=== PATIENT | female | born 1940 | race Caucasian/White ===

== ENCOUNTER 2019-06-08 11:37 | Inpatient (IN) | payer MEDICARE ==
[~2019-06-08] VITALS: Ht 157.5 cm; Wt 96.3 kg
[~2019-06-08 11:37] MED LIST: AMLO5TAB4 PO; ASPI-496 PO; ATEN25TA PO; LEVO0.5P PO; LOVA20TA2 PO; METF500T17 PO; OMEP20CA9 PO; SPIR25TA5 PO
[2019-06-08 12:13] VITALS: BP 101/64
[2019-06-08] MEDS: LEVOTHYROXINE 75 MCG TABLET PO SCH (12:32)
[2019-06-08] MEDS ORDERED: LISINOPRIL 20 MG TABLET PO SCH (12:33)
[2019-06-08] MEDS ORDERED: METO100T7 PO (13:09)
[2019-06-08] MEDS ORDERED: AMLO10TA8 PO (13:10)
[2019-06-08] MEDS ORDERED: HYDR-3245 PO (13:10)
[2019-06-08] MEDS ORDERED: LEVO75TA5 PO (13:10)
[2019-06-08] MEDS ORDERED: ALPR0.254 PO (13:10)
[2019-06-08] MEDS ORDERED: DOCU-131 PO (13:10)
[2019-06-08] MEDS ORDERED: LISI1TAB20 PO (13:10)
[2019-06-08] MEDS ORDERED: RANI150T4 PO (13:10)
[2019-06-08 13:13] LABS: BASOPHILS # (AUTO) 0.06 x10^3/uL (0-0.1); BASOPHILS % (AUTO) 1 % (0-1); EOSINOPHILS # (AUTO) 0.11 x10^3/uL (0-0.4); EOSINOPHILS % (AUTO) 1 % (1-7); LYMPHOCYTES # (AUTO) 2.56 x10^3/uL (1-3.4); LYMPHOCYTES % (AUTO) 27 % (22-44); MD NO; MEAN CORPUSCULAR HEMOGLOBIN 29.5 pg (27.0-34.8); MEAN CORPUSCULAR HGB CONC 33.3 g/dL (32.4-35.8); MEAN CORPUSCULAR VOLUME 88.5 fL (80-100); MEAN PLATELET VOLUME 7.7 fL (7.4-10.4); MONOCYTES # (AUTO) 0.62 x10^3/uL (0.2-0.8); MONOCYTES % (AUTO) 7 % (2-9); NEUTROPHILS % (AUTO) 65 % (42-75); PLATELET COUNT 360 x10^3/uL (130-400); RED BLOOD COUNT 4.25 x10^6/uL (3.82-5.3); RED CELL DISTRIBUTION WIDTH 13.6 % (9.6-15.2)
[2019-06-08 13:19] LABS: ALBUMIN 3.6 g/dL (3.4-5.0); ANION GAP 8 mmol/L (5-15); CALCIUM 8.4 mg/dL (8.5-10.1); CHLORIDE 105 mmol/L (98-107)
[2019-06-08 13:24] LABS: ALANINE AMINOTRANSFERASE 18 U/L (12-78); ALKALINE PHOSPHATASE 49 U/L (45-117); BILIRUBIN,TOTAL 0.2 mg/dL (0.2-1.0); CREATININE 1.17 mg/dL (0.55-1.02); T4 (THYROXINE) 11.1 mcg/dL (4.8-13.9); TROPONIN I < 0.015 ng/mL (0.000-0.045)
[2019-06-08] MEDS ORDERED: HYDROcodone/APAP 10/325 MG TABLET PO PRN (15:00)
[2019-06-08] MEDS ORDERED: ACETAMINOPHEN 325 MG TABLET PO PRN (15:00)
[2019-06-08] MEDS ORDERED: ONDANSETRON ODT 4 MG PO PRN (15:00)
[2019-06-08 16:37] VITALS: BP 102/67
[2019-06-08] MEDS ORDERED: DIGOXIN 0.25 MG/ML, 2ML IVPush ONE (17:30)
[2019-06-08 18:34] LABS: TROPONIN I < 0.015 ng/mL (0.000-0.045)
[2019-06-08] MEDS ORDERED: GADOTERATE 10 MMOL/20 ML SYR ONE (18:53)
[2019-06-08] MEDS: APIXABAN 5 MG TABLET PO SCH (20:02)
[2019-06-08] MEDS: METOPROLOL TARTRATE 100 MG TABLET PO SCH (20:02)
[2019-06-08] MEDS: metFORMIN 500 MG TABLET PO SCH (20:02)
[2019-06-08] MEDS: DOCUSATE 100 MG CAPSULE PO SCH (20:02)
[2019-06-08] MEDS: FAMOTIDINE 20 MG TABLET PO SCH (20:02)
[2019-06-08 21:01] VITALS: BP 99/62
[2019-06-09 00:56] VITALS: BP 122/77
[2019-06-09 05:59] LABS: ALANINE AMINOTRANSFERASE 14 U/L (12-78); ALBUMIN 3.4 g/dL (3.4-5.0); ANION GAP 5 mmol/L (5-15); CALCIUM 8.5 mg/dL (8.5-10.1); CHLORIDE 105 mmol/L (98-107)
[2019-06-09 06:01] LABS: ALKALINE PHOSPHATASE 43 U/L (45-117); BILIRUBIN,TOTAL 0.4 mg/dL (0.2-1.0); TOTAL PROTEIN 6.6 g/dL (6.4-8.2)
[2019-06-09] MEDS: LEVOTHYROXINE 75 MCG TABLET PO SCH (06:24)
[2019-06-09 07:49] VITALS: BP 140/82
[2019-06-09] MEDS ORDERED: REGADENOSON 0.4 MG/5 ML SYRINGE ONE (08:42)
[2019-06-09] MEDS: HYDROCHLOROTHIAZIDE 25 MG TABLET PO SCH (10:25)
[2019-06-09] MEDS: metFORMIN 500 MG TABLET PO SCH ×2 (10:25→21:02)
[2019-06-09] MEDS: FAMOTIDINE 20 MG TABLET PO SCH ×2 (10:25→21:19)
[2019-06-09] MEDS: OMEPRAZOLE 20 MG CAPSULE.DR PO SCH (10:25)
[2019-06-09] MEDS: DOCUSATE 100 MG CAPSULE PO SCH ×2 (10:25→21:02)
[2019-06-09] MEDS: APIXABAN 5 MG TABLET PO SCH ×2 (10:25→21:02)
[2019-06-09] MEDS: METOPROLOL TARTRATE 100 MG TABLET PO SCH ×2 (10:26→21:02)
[2019-06-09] MEDS: LISINOPRIL 20 MG TABLET PO SCH (10:26)
[2019-06-09] MEDS: LISINOPRIL 10 MG TABLET PO SCH (10:26)
[2019-06-09 13:23] VITALS: BP 125/78
[2019-06-09 19:46] VITALS: BP 107/71
[2019-06-09] MEDS ORDERED: FAMOTIDINE 20 MG TABLET ONE (21:17)
[2019-06-10 01:29] VITALS: BP_SYST 103; BP_SYST 113; BP_DIAS 68
[2019-06-10] MEDS: LEVOTHYROXINE 75 MCG TABLET PO SCH (06:05)
[2019-06-10 07:10] VITALS: BP 129/83
[2019-06-10] MEDS: HYDROCHLOROTHIAZIDE 25 MG TABLET PO SCH (10:03)
[2019-06-10] MEDS: METOPROLOL TARTRATE 100 MG TABLET PO SCH ×3 (10:03→20:33)
[2019-06-10] MEDS: OMEPRAZOLE 20 MG CAPSULE.DR PO SCH ×2 (10:03→20:32)
[2019-06-10] MEDS: FAMOTIDINE 20 MG TABLET PO SCH (10:03)
[2019-06-10] MEDS: DOCUSATE 100 MG CAPSULE PO SCH ×2 (10:03→20:31)
[2019-06-10] MEDS: LISINOPRIL 10 MG TABLET PO SCH (10:04)
[2019-06-10] MEDS: LISINOPRIL 20 MG TABLET PO SCH (10:04)
[2019-06-10] MEDS ORDERED: SODIUM CHLORIDE 0.9% 1,000 ML IV SCH (11:00)
[2019-06-10 12:15] VITALS: BP 134/74
[2019-06-10 19:29] VITALS: BP 98/62
[2019-06-11 01:37] VITALS: BP 106/68
[2019-06-11] MEDS: LEVOTHYROXINE 75 MCG TABLET PO SCH (05:33)
[2019-06-11 06:50] VITALS: BP 138/84
[2019-06-11] MEDS: FAMOTIDINE 20 MG TABLET PO SCH (07:29)
[2019-06-11] MEDS: DOCUSATE 100 MG CAPSULE PO SCH ×2 (07:29→20:51)
[2019-06-11] MEDS: LISINOPRIL 10 MG TABLET PO SCH (07:29)
[2019-06-11] MEDS: HYDROCHLOROTHIAZIDE 25 MG TABLET PO SCH (09:00)
[2019-06-11] MEDS: METOPROLOL TARTRATE 100 MG TABLET PO SCH (09:00)
[2019-06-11 12:20] VITALS: BP 115/73
[2019-06-11] MEDS ORDERED: FENTANYL PF 100 MCG/2ML ONE (15:39)
[2019-06-11] MEDS ORDERED: LIDOCAINE-MPF 1%, 5ML ONE (15:40)
[2019-06-11] MEDS ORDERED: VERAPAMIL 2.5 MG/ML, 2ML ONE (15:40)
[2019-06-11] MEDS ORDERED: MIDAZOLAM 1 MG/ML, 5ML ONE (15:40)
[2019-06-11] MEDS ORDERED: HEPARIN 1,000 UNITS/ML, 10ML ONE (15:40)
[2019-06-11] MEDS ORDERED: BIVALIRUDIN 250 MG ONE (16:39)
[2019-06-11] MEDS ORDERED: TICAGRELOR 90 MG TABLET ONE (16:51)
[2019-06-11] MEDS: SODIUM CHLORIDE 0.9% 1,000 ML IV SCH ×2 (16:54→22:43)
[2019-06-11] MEDS ORDERED: BIVALIRUDIN 250 MG in SODIUM CHLORIDE 0.9% 50 ML IV SCH (16:54)
[2019-06-11] MEDS: METOPROLOL SUCCINATE 100 MG TAB.ER.24H PO SCH (17:29)
[2019-06-11 18:49] VITALS: BP 141/82
[2019-06-11] MEDS: TICAGRELOR 90 MG TABLET PO SCH (20:52)
[2019-06-11] MEDS ORDERED: NEOSPORIN OINT. PKT 1 PACKET TP PRN (23:00)
[2019-06-11 23:58] LABS: TROPONIN I < 0.015 ng/mL (0.000-0.045)
[2019-06-12 01:16] VITALS: BP 99/55
[2019-06-12 04:50] LABS: ANION GAP 5 mmol/L (5-15); CALCIUM 8.7 mg/dL (8.5-10.1); CHLORIDE 102 mmol/L (98-107); CREATININE 1.12 mg/dL (0.55-1.02)
[2019-06-12] MEDS: METOPROLOL SUCCINATE 100 MG TAB.ER.24H PO SCH ×2 (06:00→17:16)
[2019-06-12] MEDS: LEVOTHYROXINE 75 MCG TABLET PO SCH (06:22)
[2019-06-12] MEDS: ASPIRIN 81 MG TABLET CHEW PO SCH (06:22)
[2019-06-12 06:49] VITALS: BP 131/84
[2019-06-12] MEDS: SODIUM CHLORIDE 0.9% 1,000 ML IV SCH (08:05)
[2019-06-12] MEDS ORDERED: FENTANYL PF 100 MCG/2ML ONE (08:06)
[2019-06-12] MEDS ORDERED: NALOXONE 1 MG/ML, 2ML ONE (08:06)
[2019-06-12] MEDS ORDERED: FLUMAZENIL 0.1 MG/1 ML, 5ML ONE (08:06)
[2019-06-12] MEDS ORDERED: MIDAZOLAM 1 MG/ML, 5ML ONE (08:06)
[2019-06-12] MEDS: DOCUSATE 100 MG CAPSULE PO SCH ×2 (08:46→14:20)
[2019-06-12] MEDS: HYDROCHLOROTHIAZIDE 25 MG TABLET PO SCH (08:46)
[2019-06-12] MEDS: TICAGRELOR 90 MG TABLET PO SCH (08:46)
[2019-06-12] MEDS: LISINOPRIL 10 MG TABLET PO SCH (08:47)
[2019-06-12] MEDS: OMEPRAZOLE 20 MG CAPSULE.DR PO SCH (08:47)
[2019-06-12] MEDS: FAMOTIDINE 20 MG TABLET PO SCH ×2 (08:47→17:54)
[2019-06-12 12:20] VITALS: BP 112/70
[2019-06-12] MEDS: CLOPIDOGREL 75 MG TABLET PO SCH (12:32)
[2019-06-12] MEDS: DILTIAZEM 5 MG/ML, 5ML IVPush PRN ×2 (14:01→17:55)
[2019-06-12 19:56] VITALS: BP 122/75
[2019-06-12] MEDS ORDERED: ATORVASTATIN 40 MG TABLET PO SCH (21:00)
[2019-06-12] MEDS: APIXABAN 5 MG TABLET PO SCH (21:27)
[2019-06-13 00:19] VITALS: BP 116/73
[2019-06-13] MEDS: ASPIRIN 81 MG TABLET CHEW PO SCH (05:26)
[2019-06-13] MEDS: DOCUSATE 100 MG CAPSULE PO SCH (05:26)
[2019-06-13] MEDS: LEVOTHYROXINE 75 MCG TABLET PO SCH (05:26)
[2019-06-13] MEDS: METOPROLOL SUCCINATE 100 MG TAB.ER.24H PO SCH (05:27)
[2019-06-13 05:29] VITALS: BP 110/74
[2019-06-13 06:44] VITALS: BP 124/76
[2019-06-13] MEDS: HYDROCHLOROTHIAZIDE 25 MG TABLET PO SCH (08:05)
[2019-06-13] MEDS: CLOPIDOGREL 75 MG TABLET PO SCH (08:06)
[2019-06-13] MEDS: OMEPRAZOLE 20 MG CAPSULE.DR PO SCH (08:06)
[2019-06-13] MEDS: APIXABAN 5 MG TABLET PO SCH (08:07)
[2019-06-13 12:21] VITALS: BP 129/71
[2019-06-13] MEDS ORDERED: METO100T7 PO (13:56)
[2019-06-13] MEDS ORDERED: CLOP75TA52 PO (16:27)
[2019-06-13] MEDS ORDERED: APIX5TAB PO (16:29)
[2019-06-25] MEDS ORDERED: LOVA10TA PO (22:14)
[2019-06-29] MEDS ORDERED: APIX5TAB PO (13:59)
[2019-06-29] MEDS ORDERED: AMIO200T42 PO (13:59)
[2019-06-29] MEDS ORDERED: DILT120C11 PO (13:59)
== END 2019-06-13 17:20 | disposition home or self-care (01) | DRG 246 ==
LOC: 5SO 11:37 → DCLOUNGE 06-13 16:56
PROVIDERS: ADMIT Internal Medicine; ATTEND Internal Medicine
PROC: 027034Z Dilation of Coronary Artery, One Artery with Drug-eluting Intraluminal Device, Percutaneous Approach (ICD-10-PCS; principal; 2019-06-11)
PROC: 4A023N7 Measurement of Cardiac Sampling and Pressure, Left Heart, Percutaneous Approach (ICD-10-PCS; 2019-06-11)
PROC: B2111ZZ Fluoroscopy of Multiple Coronary Arteries using Low Osmolar Contrast (ICD-10-PCS; 2019-06-11)
PROC: 4A0335C Measurement of Arterial Flow, Coronary, Percutaneous Approach (ICD-10-PCS; 2019-06-11)
PROC: B2151ZZ Fluoroscopy of Left Heart using Low Osmolar Contrast (ICD-10-PCS; 2019-06-11)
DX: I25.110 Atherosclerotic heart disease of native coronary artery with unstable angina pectoris (principal); I50.33 Acute on chronic diastolic (congestive) heart failure; D68.59 Other primary thrombophilia; I48.92 Unspecified atrial flutter; I48.91 Unspecified atrial fibrillation; J44.9 Chronic obstructive pulmonary disease, unspecified; E03.9 Hypothyroidism, unspecified; E11.9 Type 2 diabetes mellitus without complications; E78.5 Hyperlipidemia, unspecified; I25.2 Old myocardial infarction; I25.82 Chronic total occlusion of coronary artery; K64.4 Residual hemorrhoidal skin tags; Z72.0 Tobacco use; Z79.02 Long term (current) use of antithrombotics/antiplatelets; I11.0 Hypertensive heart disease with heart failure
CPT/HCPCS: 36415; 70553; 71046; 78452; 80048; 80053; 84436; 84443; 84484; 85025; 93005; 93017; 93306; 93458; 93571; 99156; 99157; C1769; C1894; C9600; G0378; J0583; J1644; J2250; J2785; J3010; Q0162; A9502; A9575; C1725; C1874; C1887; C9898; J1160; J2310; J7030; Q9967

== ENCOUNTER 2021-02-07 11:20 | Emergency (ER) | payer MEDICARE ==
[~2021-02-07] VITALS: Ht 157.5 cm; Wt 93.3 kg
[~2021-02-07 11:20] MED LIST changes: +ALPR0.254 PO; +AMIO200T42 PO; +AMLO-211 PO; +APIX5TAB PO; +CLOP75TA52 PO; +DILT120C11 PO; +DOCU-131 PO; +HYDR1TAB53 PO; +LEVO75TA5 PO; +LISI1TAB20 PO; +LOVA10TA PO; +METO100T7 PO; +RANI150T4 PO
--- NOTE | 2021-02-07 12:22 | NUR ---
Pt reports in and out of afib (with RVR) since last night. Pt has pulse ox and has been monitoring her pulse, which got as high as 150. Pt describes mild tightness "between her breasts" describes feeling palpitations, denies SOB. Connected to all monitors, NSR.
[2021-02-07 12:24] VITALS: BP 123/53
[2021-02-07 12:40] LABS: BASOPHILS % (AUTO) 1 % (0-1); EOSINOPHILS % (AUTO) 2 % (1-7); LYMPHOCYTES % (AUTO) 21 % (22-44); MEAN CORPUSCULAR HEMOGLOBIN 31.9 pg (27.0-34.8); MEAN CORPUSCULAR HGB CONC 34.1 g/dL (32.4-35.8); MEAN PLATELET VOLUME 7.6 fL (7.4-10.4); MONOCYTES % (AUTO) 8 % (2-9); NEUTROPHILS % (AUTO) 68 % (42-75); PLATELET COUNT 305 x10^3/uL (130-400); RED CELL DISTRIBUTION WIDTH 12.8 % (9.6-15.2)
[2021-02-07 12:49] LABS: ALBUMIN 3.4 g/dL (3.4-5.0); ANION GAP 8 mmol/L (5-15); CALCIUM 8.7 mg/dL (8.5-10.1); CHLORIDE 105 mmol/L (98-107); CREATININE 1.27 mg/dL (0.55-1.02)
[2021-02-07 12:53] LABS: TROPONIN I < 0.015 ng/mL (0.000-0.045)
== END 2021-02-07 14:04 | disposition home or self-care (01) ==
LOC: ED 12:34
DX: I48.0 Paroxysmal atrial fibrillation (principal); I10 Essential (primary) hypertension; R00.0 Tachycardia, unspecified; R07.9 Chest pain, unspecified
CPT/HCPCS: 36415; 71045; 80048; 82040; 83880; 84484; 85025; 93005; 99285